=== PATIENT | female | born 1980 | race Caucasian/White ===

== ENCOUNTER 2017-03-28 00:05 | Emergency (ER) | payer MEDICARE, OTHER ==
[~2017-03-28] VITALS: Ht 165.1 cm; Wt 90.3 kg
[2017-03-28] MEDS ORDERED: OMEPRAZOLE20 MG PO (00:20)
[2017-03-28] MEDS ORDERED: SERTRALINE HCL50 MG PO (00:20)
[2017-03-28] MEDS ORDERED: LARISSIA-28 TA1 EACH PO (00:20)
== END 2017-03-28 01:35 | disposition home or self-care (01) ==
LOC: ED 00:05
DX: G43.909 Migraine, unspecified, not intractable, without status migrainosus (principal); J45.909 Unspecified asthma, uncomplicated; Z88.0 Allergy status to penicillin; Z88.1 Allergy status to other antibiotic agents; Z88.8 Allergy status to other drugs, medicaments and biological substances; Z79.899 Other long term (current) drug therapy
CPT/HCPCS: 96361; 96374; 96375; 99282; J1200; J1885; J2765; J7030

== ENCOUNTER 2017-05-03 09:56 | Inpatient (IN) | payer MEDICARE, OTHER ==
[~2017-05-03] VITALS: Ht 165.1 cm; Wt 98.7 kg
[~2017-05-03 09:56] MED LIST: LARISSIA-28 TA1 EACH PO; OMEPRAZOLE20 MG PO; SERTRALINE HCL50 MG PO
--- NOTE | 2017-05-03 14:54 | NUR ---
RECEIVED REPORT VIA TELEPHONE FROM DWAYNE CEBALLOS IN ED. ALL QUESTIONS ANSWERED. WILL RECEIVE PATIENT TO ROOM 108.
--- NOTE | 2017-05-03 16:40 | NUR ---
NOT SEEN BY DR LINK YET. NPO UNTIL NEW ORDERS. DEON SURGERY TOMORROW EXPECTED. FIANCE AT BEDSIDE. WILL STAY THE NIGHT. HEAT RASH IN "ELBOW PITS". SKIN GOOD OTHERWISE. NO PAIN AT THIS TIME. D5LR @ 125.
--- NOTE | 2017-05-03 17:54 | NUR ---
assisted pt to bathroom sba with iv pole. urinated 200ml. ari kenney assisted back to bed. ivf infusing now. pain relieved by prn pain meds. dr coleman writing orders now.
--- NOTE | 2017-05-03 19:05 | NUR ---
SHIFT REPORT RECIEVED. PATIENT RESTING IN BED WATCHING TV. FAMILY AT BEDSIDE. PATIENT DENIES NEEDS AT THIS TIME. CALL LIGHT IN REACH.
--- NOTE | 2017-05-03 20:22 | NUR ---
VITALS AND I&OS DONE AND CHARTED. HELPED PT TO THE BATHROOM AND BACK TO BED. GOT HER FRESH WATER. BEDSIDE TABLE AND CALL LIGHT WITHIN REACH. PT NEEDS NOTHING ELSE AT THIS TIME.
--- NOTE | 2017-05-03 21:25 | NUR ---
HELPED PT INTO BED WITH HER WALKER. BEDSIDE TABLE AND CALL LIGHT WITHIN REACH. FRESH WATER GIVEN. SCDS HOOKED UP AND TURNED ON.
--- NOTE | 2017-05-03 21:30 | NUR ---
EVENING MEDS GIVEN PER ORDER. PATIENT RESTING IN BED WATCHING TV. REQUESTED PRN PAIN MEDS FOR 2/10 PAIN. LUNG SOUNDS ARE CLEAR. ABD IS ROUND, SOFT, AND TENDER THROUGHOUT. BOWEL SOUNDS ARE HYPOACTIVE. PATIENT TOLERATING CLEAR LIQUIDS AT THIS TIME. CMS INTACT. BOYFRIEND AT THE BEDSIDE. IV FLUIDS INFUSING PER ORDER, SITE WNL.PRN PAIN MEDS PROVIDED. CALL LIGHT IN REACH.
--- NOTE | 2017-05-04 | NUR ---
PATIENT'S WATCH CUP REMOVED FROM BEDSIDE. PATIENT IS NPO AT THIS TIME. PATIENT APPEARS TO BE SLEEPING. EYES CLOSED. RR16. CALL LIGHT IN REACH.
--- NOTE | 2017-05-04 01:37 | NUR ---
HELPED PT TO THE BATHROOM AND BACK TO BED. CHARTED URINE OUTPUT. PT NEEDED NOTHING ELSE AT THIS TIME. BEDSIDE TABLE AND CALL LIGHT NEXT TO HER.
--- NOTE | 2017-05-04 01:38 | NUR ---
HELPED PT TO THE BATHROOM AND BACK TO BED. CHARTED URINE OUTPUT. BEDSIDE TABLE AND CALL LIGHT WITHIN REACH.
--- NOTE | 2017-05-04 01:39 | NUR ---
PT REQUESTED A PILLOW FOR HER GUEST. I WENT AND GOT HIM ONE. PT NEEDS NOTHING ELSE AT THIS TIME.
--- NOTE | 2017-05-04 02:00 | NUR ---
SANDIP JULY PERFORMED VITAL SIGNS. PATIENT UP TO THE BATHROOM. DENIED NEED FOR PRN PAIN MEDS. PATIENT BACK TO BED. CALL LIGHT IN REACH.
--- NOTE | 2017-05-04 02:06 | NUR ---
PT VITALS AND I&OS DONE AND CHARTED. PT NEEDS NOTHING MORE AT THIS TIME. BEDSIDE TABLE AND CALL LIGHT WITHIN REACH.
--- NOTE | 2017-05-04 04:51 | NUR ---
PATIENT REQUESTED PRN PAIN MEDS FOR PAIN RATED 2/10. PATIENT REPORTS DIFFICULTY SLEEPING. OFFERED THE PATIENT AN EYE MASK, EAR PLUGS, OR A SOUND MACHINE. PATIENT DECLINED. NO OTHER NEEDS. CALL LIGHT IN REACH.
--- NOTE | 2017-05-04 04:59 | NUR ---
PATIENT RESTED WELL THROUGHOUT THE SHIFT. IV FLUIDS INFUSING PER ORDER. IV ABX PER ORDER. PRN PAIN MEDS X2 FOR ABD PAIN. NO NAUSEA. NPO SINCE MIDNIGHT. INDEPENDENT IN THE ROOM. BOYFRIEND AT BEDSIDE.
--- NOTE | 2017-05-04 06:00 | NUR ---
VITALS AND I&OS DONE AND CHARTED. EMPTIED ALL GARBAGES. PT NEEDS NOTHING ELSE AT THIS TIME. BEDSIDE TABLE AND CALL LIGHT WITHIN REACH. NOTIFIED TUCKER HYDE HER BLOOD PRESSURE WAS A LITTLE ELEVATED.
--- NOTE | 2017-05-04 07:15 | NUR ---
report recd from Ellen RN, pt resting in bed and denies any needs at this time.
--- NOTE | 2017-05-04 09:26 | NUR ---
assessment completed and pt medicated w/ scheduled medications. flu shot consent signed and shot given. pt denies any further needs at this time.
--- NOTE | 2017-05-04 11:03 | NUR ---
PT C/O mild headache at this time, asked pt if she felt she needed pain medication at this time or if she wanted to try other interventions. pt states she will try other interventions at this time. pt requests a cold compress and an ice pack at this time. Enc pt to call if she feels she needs further interventions or pain medication at this time.
--- NOTE | 2017-05-04 11:45 | NUR ---
I HELPED PATIENT WITH SURGICAL WIPE DOWN THIS MORNING.
--- NOTE | 2017-05-04 12:14 | NUR ---
pt to surgery w/ surgery RN. Antione sent w/ pt to surgery.
--- NOTE | 2017-05-04 15:04 | NUR ---
05/04/17 1504 Darling Guillen 1458 RESP EVEN AND UNLABORED, PT COUGHING, THEN BACK TO SLEEP.
--- NOTE | 2017-05-04 15:58 | HP ---
[facility] [address] [place], [place] [address] Signed ADMISSION DATE: 05/03/2017 REASON FOR ADMISSION: Acute calculous cholecystitis. HISTORY: This 36-year-old white woman presented to the emergency room having the onset of right upper abdominal pain about midnight last night. She had eaten a whopper hamburger as well as Korean fries and so forth earlier in the evening. She has had episodes of right upper abdominal pain in the past, but not sure exactly why she was having them. She presented to the emergency room, where she was evaluated by Dr. Burger, who recognized acute cholecystitis and ordered a gallbladder ultrasound, which confirmed a stone wedged in the infundibulum of the gallbladder and findings consistent with acute cholecystitis. Her white count was slightly elevated at 11.1 and she is admitted for further evaluation and care for acute calculous cholecystitis. PAST MEDICAL HISTORY: Does include prior orthopedic injury of her leg. This includes the tibia and fibula x-ray in August 2010. She has no chronic medical problems. MEDICATIONS: Her medications at time of admission do include omeprazole, Oracea, and sertraline. ALLERGIES: She has allergies to penicillin, pseudoephedrine. SOCIAL HISTORY: When inquiring if she works, she says that she does not and when I asked why, she says she does not like to work. She is on social security. When I asked what her disability was, she really does not know. She has worked in the past at [employer] and elsewhere, but at present has no intention of ever working again by the sounds of it. She is accompanied by her boyfriend, who lives in the [facility], [facility], lives locally. REVIEW OF SYSTEMS: She denies any shortness of breath or chest pain. Has had no dysphagia or dysuria. Denies any hematemesis or blood per rectum. PHYSICAL EXAMINATION: GENERAL: Obese white woman who does not look systemically toxic. HEENT: Mucous membranes are slightly dry. Trachea is midline. Electronically Signed By: CARLOS ENRIQUE LINK MD 05/04/17 1558 PATIENT NAME: RYAN SON HISTORY AND PHYSICAL DATE OF : 76 PHYSICIAN: CARLOS ENRIQUE LINK MD REPORT #: [id number] REPORT IS CONFIDENTIAL AND NOT TO BE RELEASED WITHOUT AUTHORIZATION [facility] [address] [place], [place] [address] Signed CHEST: Clear. HEART: Regular without murmur. ABDOMEN: Obese, but soft. There is no significant tenderness in the right upper abdomen at the moment. She was recently dosed with medication. EXTREMITIES: Showed no clubbing, cyanosis, or edema. LABORATORY DATA: Reviewed, showed a white count of 11.2, hematocrit 38.2, platelets 285,000. Chem profile showed a potassium 3.5. Liver enzymes were normal. Lipase is 42. Urinalysis was normal. I did not see a beta-hCG having been obtained in the emergency room. I have reviewed this ultrasound images. Findings included a normal liver and pancreas. The 24 mm gallstone is lodged in the neck of the gallbladder. Gallbladder wall is thickened up to 9 mm. There is fluid within the wall of the gallbladder with laminated appearance. ASSESSMENT: The patient has acute calculous cholecystitis, quite clearly related to gallstone. I discussed the pathophysiology of problem with her and her boyfriend. I would recommend cholecystectomy preferred by a laparoscopic approach. The risks of bleeding, infection, bile duct injury, need for open procedure, and so forth were all reviewed in detail. She understands. We will make arrangements to do operation tomorrow. She needs fluids at this point, as well as pain medication, antibiotic therapy. I will order a beta-hCG on the basis of her age and so on. MD LORRI Chandler/JUANJOSEL /[id number] cc: Alistair Burger Electronically Signed By: CARLOS ENRIQUE LINK MD 05/04/17 1558 PATIENT NAME: RYAN SON HISTORY AND PHYSICAL DATE OF : 76 PHYSICIAN: CARLOS ENRIQUE LINK MD REPORT #: [id number] REPORT IS CONFIDENTIAL AND NOT TO BE RELEASED WITHOUT AUTHORIZATION
--- NOTE | 2017-05-04 17:00 | NUR ---
PT RESTING IN BED. PT COMPLAINT OF PAIN 10/23, GIVEN 4 MG IV MORPHINE. PT ON ROOM AIR. PT DENIES NAUSEA, ENCOURAGED TO EAT CLEAR LIQUID DIET. LAP SITES X4 WITH SMALL AMOUNT OF DRAINAGE, UNCHANGED FROM ARRIVAL TO FLOOR. PT DENIES OTHER NEEDS AT THIS TIME. VSS.
--- NOTE | 2017-05-04 18:30 | NUR ---
PT ASSISTED TO BEDSIDE COMMODE. PT RATING PAIN BETTER 5/10. VOIDING WITHOUT DIFFICULTY. PT TOLERATING CLEAR LIQUID DIET, ENCOURAGED REGULAR DIET. PT REQUESTING TIME ON COMMODE, DENIES OTHER NEEDS.
--- NOTE | 2017-05-04 19:00 | NUR ---
SHIFT REPORT RECIEVED. LUCIANO RESTING IN BED. LAST SET OF POST OP VS COMPLETED, WNL. IV FLUIDS INFUSING. SITE WNL. PATIENT REPORTS GOOD PAIN CONTROL AT THIS TIME. BLANKET SPLINT IN USE OVER ABD. ICE PACK APPLIED. PATIENT PROVIDED SOME CRACKERS AND PUDDING. SHE WAS ABLE TO TOLERATE JELLO AND WATER. CALL LIGHT IN REACH.
--- NOTE | 2017-05-04 19:46 | NUR ---
PT HAD LAP DEON TODAY. ARRIVED BACK TO FLOOR AT 1600. PT PAIN WELL CONTROLLED WITH IV MORPHINE, ENCOURAGING PO INTAKE TO TRANSITION TO PO PAIN MEDICATION. LAP SITES X4 WITH STERISTRIPS IN PLACE, SMALL AMOUNT OF SEROSANGUINOUS DRAINAGE TO UMBILICAL SITE. PT ON ROOM AIR, LUNG SOUNDS CLEAR. DENIES NAUSEA, ADVANCE DIET TOLERATED TO REGULAR. PT VOIDING WITHOUT DIFFICULTY. BOWEL TONES HYPOACTIVE. D5LR AT 85 ML/HR.
--- NOTE | 2017-05-04 19:59 | NUR ---
PATIENT IN BED, WHITEBOARD UPDATED. ROOM TIDIED. TRAY TAKEN OUT
--- NOTE | 2017-05-04 20:48 | NUR ---
up to brp, tolerated well, pt encouraged to walk hallways, receptive. no c/o of pain at this time
--- NOTE | 2017-05-04 21:40 | NUR ---
EVENING MEDS GIVEN. PATIENT WAS RESTING, BUT AROUSED EASILY WHEN RN ENTERED ROOM. SHE IS ORIENTED X4 AND PLESENT. REPORTS PAIN IS WELL CONTROLLED, 04/25. LUNGS ARE CLEAR. ABD IS SOFT, AND TENDER, WITH ACTIVE BOWEL SOUNDS. LAP SITES X4, UMBILICAL SITE REENFORCED WITH GAUZE. NEW GOWN PROVIDED. PATIENT UP TO THE BATHROOM, STEADY ON HER FEET. IV FLUIDS INFUSING, SITE WNL. PATIENT BACK IN BED. SCDS IN USE. WARM BLANKET PROVIDED. PATIENT TOLERATED PUDDING AND CRACKERS. DENIES NEED FOR PAIN MEDS AT THIS TIME. CALL LIGHT IN REACH.
--- NOTE | 2017-05-05 | NUR ---
PATIENT UP WALKING IN JONES WITH SANDIP WISEMAN
--- NOTE | 2017-05-05 01:02 | NUR ---
Medicated with 2 norco po c/o abd and l shoulder pain. awake, alert and oriented, no c/o n/v. no further requests
--- NOTE | 2017-05-05 01:10 | NUR ---
pT TEMP 99.5, CDB AND USAGE OF is GIVEN, COOPERATIVE, 2 COVERS REMOVED. PT COOP WITH PROCEDURE/TEACHINGS. WILL REVIEW TEMP IN 1-2HRS
--- NOTE | 2017-05-05 01:55 | NUR ---
PATIENT RESTING. EYES CLOSED. RR18. IV FLUIDS INFUSING. NO OBVIOUSLY DRAINAGE FROM LAP SITES. CALL LIGHT IN REACH.
--- NOTE | 2017-05-05 03:11 | NUR ---
ASSISTED PT TO BATHROOM. PT IS BACK IN BED.
--- NOTE | 2017-05-05 06:24 | NUR ---
Pt medicated with 2 norco / abd pain, states not passing gas gas. No c/o n/c. Pt up walking hallways
--- NOTE | 2017-05-05 06:27 | NUR ---
PATIENT UP AMBULATING IN JONES. CUSTOM FEED CORN OPERATOR PROVIDED PRN PAIN MEDS PER PATIENT REQUEST.
--- NOTE | 2017-05-05 07:10 | NUR ---
HANDOFF REPORT RECEIVED FROM GLASS INSPECTOR RN.
--- NOTE | 2017-05-05 09:30 | NUR ---
PT RESTING IN BED. PT RATING PAIN 5/10, STATES BETTER AFTER NORCO. PT ON ROOM AIR, LUNG SOUNDS CLEAR, DENIES SOB. PT DENIES NAUSEA, TOLERATING REGULAR DIET, BOWEL TONES ACTIVE. IV FLUIDS INFUSING D5LR AT 85 ML/HR. CMS INTACT, WITHOUT EDEMA. ABD WITH LAP SITES X4, UMBILICAL SITE CONTINUES TO HAVE SMALL AMOUNT OF RED DRAINAGE, GAUZE CHANGED. SCDS IN PLACE. PT VOIDING WITHOUT DIFFICULTY. DISCUSSED PLAN OF CARE WITH PT, DENIES OTHER NEEDS AT THIS TIME.
--- NOTE | 2017-05-05 12:15 | NUR ---
PT RESTING IN BED. PT WALKED IN JONES INDEPENDENTLY, STATES PAIN IS TOLERABLE. PT ON ROOM AIR, DENIES SOB. PT REQUESTING TO SHOWER, SALINE LOCKED. PT TOLERATING REGULAR DIET, DECREASED APPETITE, EDUCATED ON EATING WITH NORCO TO REDUCE NAUSEA. PT DENIES OTHER NEEDS AT THIS TIME.
[2017-05-05] MEDS ORDERED: HYDROCODON-ACE1 EA10 PO (15:01)
[2017-05-05] MEDS ORDERED: TYLENOL325 MG PO (15:03)
--- NOTE | 2017-05-05 16:14 | NUR ---
DISCHARGE INSTRUCTIONS COMPLETED WITH PT AND SIGNIFICANT OTHER. IV CATH REMOVED, TIP INTACT. PT GIVEN PAPER PRESCRIPTIONS, REVIEWED MEDICATIONS. QUESTIONS ANSWERED. PT DRESSED, BELONGINGS RETURNED. AWAITING RIDE.
--- NOTE | 2017-05-05 18:26 | OR ---
[facility] [address] [place], [place] [address] Signed DATE OF OPERATION: 05/04/2017 SURGEON: Carlos Enrique Link MD PREOPERATIVE DIAGNOSES: 1. Acute calculous cholecystitis. 2. Obesity. POSTOPERATIVE DIAGNOSES: 1. Acute calculous cholecystitis. 2. Obesity. PROCEDURE: 1. Laparoscopic cholecystectomy with intraoperative cholangiogram. 2. Surgeon-directed fluoroscopy. ANESTHESIA: General endotracheal (Michelle Mclean CRNA) and local 20 mL of 0.25% Marcaine with epinephrine. INDICATION: This 36-year-old white woman is considered disabled for reasons she cannot enumerate and presented to the hospital 2 days ago essentially with significant epigastric and right subcostal pain. Evaluation in the emergency room found her to have thickening of the gallbladder wall and a single large gallstone. Liver enzymes are normal. She has been fluid resuscitated, given intravenous antibiotics, parenteral pain medication, and prepared now for operation. She understands the risks of bleeding, infection, bile duct injury, need for open procedure and other unforeseen complications and wished to proceed. FINDINGS: The gallbladder was edematous and inflamed and had a fair amount of omental adhesions to it. The liver itself was reasonably normal. Cholangiogram was normal. The gallbladder once excised confirmed a large nearly 3 cm round gallstone. The mucosa of the gallbladder was chronically atrophic without sign of neoplasm. There were no other findings of concern. DESCRIPTION OF PROCEDURE: The patient was brought to the operating room, given a general endotracheal anesthetic. Preoperative antibiotic Ancef had been given. Sequential compression device stockings Electronically Signed By: CARLOS ENRIQUE LINK MD 05/05/17 1826 PATIENT NAME: RYAN SON OPERATIVE REPORT DATE OF : 76 PHYSICIAN: CARLOS ENRIQUE LINK MD REPORT #: [id number] REPORT IS CONFIDENTIAL AND NOT TO BE RELEASED WITHOUT AUTHORIZATION [facility] [address] [place], [place] [address] Signed were used and heparin subcutaneously administered. After satisfactory general endotracheal anesthesia, the abdomen was prepared with a chlorhexidine solution and draped sterilely. An infraumbilical incision was made and using an open Artis cannula technique, pneumoperitoneum achieved to a level of 14 mmHg with carbon dioxide gas. Intraabdominal inspection showed no sign of ascites or carcinomatosis. The gallbladder was obscured from view at that point. Three additional trocars were placed in usual configuration in the subxiphoid, right midclavicular, and right anterior axillary line. The gallbladder was elevated cephalad and found to have omental adhesions densely adherent to the gallbladder. The gallbladder had a white chronically inflamed appearance and edema consistent with acute inflammation. Using blunt and electrocautery dissection, the omental adhesions were taken down allowing for better elevation of the gallbladder. A small amount of capsular bleeding of the liver at the region of the round ligament was noted. This was secured with electrocautery. The gallbladder was retracted laterally and using blunt electrocautery dissection the rather thick omental adhesions and thickened edematous peritoneum over the infundibulum with gallbladder was dissected free, ultimately identifying well the cystic duct. A clip was applied across the gallbladder cystic duct junction and a transverse choledochotomy made in the cystic duct. Using an bContext type cholangiocatheter system, intraoperative cholangiography was undertaken with surgeon-directed fluoroscopy showing free flow of contrast in biliary tree with prompt emptying into the duodenum. Careful inspection of the common duct in the region of the cystic duct itself was undertaken to be sure there was no sign of intraluminal stones. Once satisfied with additional fluoroscopic views that there was no impediment to flow or stones, cystic duct was decannulated from the catheter and the cystic duct was triply clipped and divided. The gallbladder was then dissected free in a retrograde fashion using electrocautery. Clips were applied to the cystic arterial branches as necessary. The gallbladder though excised completely was placed in an endobag and extracted through the infraumbilical port site without problem, opened on the back table and found to have attenuated thinned out mucosa. No sign of neoplasm and chronic inflammation. The gallstone present was about 3 cm in size. Irrigation was undertaken in the subhepatic space. There was no sign of bile leak, bleeding or other problems. Excess irrigation fluid was suctioned free. The trocars were removed under direct visualization showing no sign of bleeding. The infraumbilical fascial incision was reapproximated with interrupted 0 Vicryl suture. A 20 mL of 0.25% Marcaine with epinephrine was injected locally for its postoperative analgesic effect. The skin was closed with interrupted 3-0 Vicryl. Steri-Strips were applied. Carlos Enrique Link MD Electronically Signed By: CARLOS ENRIQUE LINK MD 05/05/17 1826 PATIENT NAME: RYAN SON OPERATIVE REPORT DATE OF : 76 PHYSICIAN: CARLOS ENRIQUE LINK MD REPORT #: [id number] REPORT IS CONFIDENTIAL AND NOT TO BE RELEASED WITHOUT AUTHORIZATION [place] [id number] Signed /GUICHO /[id number] cc: Alistair Burger Electronically Signed By: CARLOS ENRIQUE LINK MD 05/05/17 1826 PATIENT NAME: SONRYAN OPERATIVE REPORT DATE OF : 76 PHYSICIAN: CARLOS ENRIQUE LINK MD REPORT #: [id number] REPORT IS CONFIDENTIAL AND NOT TO BE RELEASED WITHOUT AUTHORIZATION
--- NOTE | 2017-05-06 11:52 | DS ---
[facility] [address] [facility] [facility] [place] [address] Signed ADMISSION DATE: 05/03/2017 DISCHARGE DATE: 05/05/2017 REASON FOR ADMISSION: This 36-year-old white woman presented to the emergency room with right upper abdominal pain at approximately midnight. She had eaten a Whopper hamburger as well as Micronesian fries and other things. She presented to the emergency room at [facility], where she was evaluated by Dr. Burger, who recognized clinical findings of acute cholecystitis and ordered gallbladder ultrasound, which confirmed a stone wedged in the infundibulum of gallbladder. She is admitted for further evaluation and care. PERTINENT PHYSICAL EXAMINATION: GENERAL: This is an obese white woman, who did not look to be systemically toxic. HEENT: Mucous membranes are slightly dry. Trachea is midline. CHEST: Clear. HEART: Regular without murmur. ABDOMEN: Obese, but soft. There is no significant tenderness in the right upper abdomen at the moment. She was recently dosed with medication. LABORATORY STUDIES: Showed a white count of 11.2, hematocrit 38.2, and platelets 285,000 Chem profile, potassium was 3.5. Liver enzymes normal. Lipase normal at 42. Urinalysis normal. A beta-hCG was later obtained, which was negative. HOSPITAL COURSE: She was given fluid resuscitation, intravenous antibiotics, parenteral pain medication, and prepared for operation. On 05/04/2017, she underwent laparoscopic cholecystectomy with intraoperative cholangiogram. She was found to have a normal cholangiogram. The liver was reasonably normal, though mildly fatty infiltrated. The gallbladder once opened showed one large gallstone indeed at the infundibulum of the gallbladder. Postoperatively, she had unremarkable recovery. She was promptly advanced in her diet, which she tolerated well. By the following day, she is tolerating a regular diet, has minimal incisional pain, and has ambulated with assistance and doing well. She feels ready for discharge. DISCHARGE MEDICATIONS: Will include: 1. [place] 5/325 one to two p.o. q.4 hours p.r.n. pain, #20. Electronically Signed By: CARLOS ENRIQUE LINK MD 05/06/17 1152 PATIENT NAME: RYAN SON DISCHARGE SUMMARY DATE OF : 76 PHYSICIAN: CARLOS ENRIQUE LINK MD REPORT #: [id number] REPORT IS CONFIDENTIAL AND NOT TO BE RELEASED WITHOUT AUTHORIZATION [facility] [address] [place], [place] [address] Signed 2. Plain Tylenol 325 to 650 p.o. q.4 hours p.r.n. lesser pain. 3. She will continue with her control pill Larissia-28 tablet as well as omeprazole 20 mg daily and sertraline 50 mg p.o. daily. DISCHARGE DIAGNOSES: 1. Acute calculous cholecystitis, status post laparoscopic cholecystectomy with intraoperative cholangiogram on 05/04/2017. 2. Obesity. 3. Reflux disease. 4. Limited mental capacity, but with full independence. FOLLOWUP PLAN: She is requested to walk on a daily basis. She should lift no more than 20 pounds for the next 2 weeks. As she does not work or have a job, there is no issue in that regard at this time. She will return to see me in approximately 4 weeks and will call for an appointment on Sunday. Carlos Enrique Link MD JM/MODL /[id number] Electronically Signed By: CARLOS ENRIQUE LINK MD 05/06/17 1152 PATIENT NAME: RYAN SON DISCHARGE SUMMARY DATE OF : 76 PHYSICIAN: CARLOS ENRIQUE LINK MD REPORT #: [id number] REPORT IS CONFIDENTIAL AND NOT TO BE RELEASED WITHOUT AUTHORIZATION
== END 2017-05-05 17:00 | disposition home or self-care (01) | DRG 419 ==
LOC: ED 09:56 → MS 09:58
PROVIDERS: ADMIT Surgery
PROC: 3E0234Z Introduction of Serum, Toxoid and Vaccine into Muscle, Percutaneous Approach (ICD-10-PCS; 2017-05-04)
PROC: BF12YZZ Fluoroscopy of Gallbladder using Other Contrast (ICD-10-PCS; principal; 2017-05-04 13:00)
PROC: 0FT44ZZ Resection of Gallbladder, Percutaneous Endoscopic Approach (ICD-10-PCS; principal; 2017-05-04 13:00)
DX: K80.00 Calculus of gallbladder with acute cholecystitis without obstruction (principal); K76.0 Fatty (change of) liver, not elsewhere classified; E66.9 Obesity, unspecified; K21.9 Gastro-esophageal reflux disease without esophagitis; Z88.0 Allergy status to penicillin; Z23 Encounter for immunization
CPT/HCPCS: 00790; 36415; 74300; 76705; 80053; 81001; 83690; 84703; 85025; 88304; 90674; G0008; J0330; J0690; J0744; J1100; J1170; J1644; J1885; J2405; J2704; J3010; J7040; J7120; Q9967